=== PATIENT | female | born 1965 | race Caucasian/White ===

== ENCOUNTER 2020-12-07 18:09 | Inpatient (IN) ==
[2020-12-07] MEDS ORDERED: Isovue-370 500 ML BOTTLE IVP ONE (18:34)
[2020-12-07 21:15] LABS: Bilirubin,Urine Negative (Negative); Blood,Urine Negative (Negative); Clarity,Urine Clear (Clear); Color,Urine Light-Yellow (Yellow); Glucose,Urine (UA) Normal (Normal); Ketones,Urine Negative (Negative); Leukocyte Esterase,Urine Negative (Negative); Nitrite,Urine Negative (Negative); PH,Urine 6.5 pH Units (5.0-8.0); Protein,Urine Negative (Neg-Trace); Specific Gravity,Urine > 1.030 (1.010-1.025); Urobilinogen,Urine Normal (Normal)
[2020-12-07] MEDS ORDERED: MetroNIDAZOLE 500 MG/100 ML 500 MG/100 ML BAG IVPB ONE (21:43)
[2020-12-07] MEDS ORDERED: cefTRIAXone 1,000 MG in 0.9 % Sodium Chloride Mini Bag 100 ML IVPB ONE (22:16)
[2020-12-07] MEDS ORDERED: Naloxone 0.4 MG/ML INJ IVP PRN (22:48)
[2020-12-07] MEDS ORDERED: Acetaminophen 325 MG TABLET PO PRN (22:48)
[2020-12-07] MEDS ORDERED: Ondansetron 4 MG/2 ML VIAL IVP PRN (22:48)
[2020-12-08] MEDS: Ringers Solution, Lactated 1,000 ML IVC SCH ×2 (00:07→09:32)
[2020-12-08 05:36] LABS: Basophils % 0.4 %; Eosinophils % 0.4 %; Hematocrit 32.4 % (35.3-44.9); Hemoglobin 10.6 g/dL (11.5-15.4); Immature Granulocytes % 0.9 % (0-4); Lymphocytes # 1.2 K/mcL (0.6-4.6); Lymphocytes % 11.1 %; Mean Corpuscular HGB Conc 32.7 g/dL (31.6-35.5); Mean Corpuscular Hemoglobin 29.2 pg (28.0-33.3); Mean Corpuscular Volume 89.3 fL (83.0-100.0); Mean Platelet Volume 8.5 fL (9.4-12.4); Monocytes # 0.9 K/mcL (0.0-1.3); Monocytes % 8.1 %; Neutrophils # 8.8 K/mcL (1.6-8.9); Platelet Count 274 K/mcL (140-400); Red Blood Count 3.63 M/mcL (3.82-4.97); Segmented Neutrophils % 79.1 %; White Blood Count 11.1 K/mcL (4.3-11.1)
[2020-12-08 05:43] LABS: INR 1.3; Prothrombin Time 14.6 Seconds (9.4-12.1)
[2020-12-08] MEDS: hydrALAZINE 25 MG TABLET PO SCH ×3 (05:48→20:19)
[2020-12-08 05:53] LABS: Alanine Aminotransferase 16 Units/L (7-52); Albumin/Globulin Ratio 1.2 (1.1-2.2); Alkaline Phosphatase 49 Units/L (34-104); Aspartate Amino Transferase 15 Units/L (13-39); BUN/Creatinine Ratio 26 (6-26); Bilirubin,Total 0.3 mg/dL (0.3-1.0); Blood Urea Nitrogen 10 mg/dL (6-20); Calcium 8.8 mg/dL (8.6-10.3); Carbon Dioxide 31 mEq/L (23-29); Chloride 102 mEq/L (98-107); Chol/HDL Ratio 2.9 (0-4.9); Cholesterol 88 mg/dL (< 200); Globulin 2.5 g/dL (2.4-3.5); Glucose 92 mg/dL (70-105); HDL Cholesterol 30 mg/dL (40-59); LDL Cholesterol,Calculated 48 mg/dL (< 100); Magnesium 1.7 mg/dL (1.6-2.6); Osmolality,Calculated 281 (280-300); Phosphorous 2.8 mg/dL (2.7-4.5); Potassium 3.5 mEq/L (3.5-5.1); Sodium 136 mEq/L (136-145); Total Protein 5.5 g/dL (6.4-8.9); Triglycerides 49 mg/dL (< 150); eGFR For African Americans > 60 (> 60); eGFR For Non-African Americans > 60 (> 60)
[2020-12-08] MEDS ORDERED: *HR* Heparin 5,000 UNIT/ML VIAL SQ SCH (06:00)
[2020-12-08] MEDS ORDERED: *HR* Heparin 5,000 UNIT/ML VIAL IVP PRN ×2 (06:21)
[2020-12-08] MEDS ORDERED: *HR* Heparin 5,000 UNIT/ML VIAL IVP ONE (06:21)
[2020-12-08] MEDS ORDERED: Perflutren Lipid Microsphere 1.3 ML in 0.9 % Sodium Chloride 8.7 ML IVP PRN (06:23)
[2020-12-08] MEDS ORDERED: Heparin 25,000UNIT/250ML 1/2NS 25,000 UNIT/250 ML IV.SOLN IVC SCH (06:30)
[2020-12-08] MEDS: polyethylene glycoL 3350 17 GM POWD.PACK PO SCH (09:33)
[2020-12-08] MEDS: Cefepime HCl 2,000 MG in Water for inj. (sterile) 20 ML IVP SCH ×2 (09:34→16:30)
[2020-12-08] MEDS: Sennosides/Docusate Sodium TABLET PO SCH ×2 (09:34→20:19)
[2020-12-08 09:51] LABS: Hematocrit 35.6 % (35.3-44.9); Hemoglobin 11.7 g/dL (11.5-15.4); Mean Corpuscular HGB Conc 32.9 g/dL (31.6-35.5); Mean Corpuscular Hemoglobin 29.1 pg (28.0-33.3); Mean Corpuscular Volume 88.6 fL (83.0-100.0); Mean Platelet Volume 8.9 fL (9.4-12.4); Platelet Count 340 K/mcL (140-400); Red Blood Count 4.02 M/mcL (3.82-4.97); White Blood Count 12.5 K/mcL (4.3-11.1)
[2020-12-08 10:01] LABS: INR 1.2; Prothrombin Time 13.6 Seconds (9.4-12.1)
[2020-12-08 10:04] LABS: Heparin anti-factor XA UFH < 0.04 IU/mL (0.30-0.70)
[2020-12-08] MEDS ORDERED: Isovue-370 500 ML BOTTLE IVP ONE (10:50)
[2020-12-08] MEDS ORDERED: Saliva Stimulant 44.3ml BOTTLE PO PRN (10:52)
[2020-12-08] MEDS ORDERED: Saline Nasal Spray 44 ML BOTTLE NS PRN (10:52)
[2020-12-08] MEDS: Propranolol LA (24 HR) 60 MG CAP.SA.24H PO SCH (13:53)
[2020-12-08] MEDS: Aspirin Enteric Coated 81 MG Tablet PO SCH (13:53)
[2020-12-08] MEDS: *HR* LORazepam 1 MG TABLET PO SCH ×2 (16:30→20:19)
[2020-12-08] MEDS: haloperidoL 5 MG TABLET PO SCH ×2 (16:30→20:19)
[2020-12-08] MEDS: MetroNIDAZOLE 500 MG/100 ML 500 MG/100 ML BAG IVPB SCH (16:32)
[2020-12-08] MEDS: NIFEdipine XL (24 HR) 30 MG TAB.ER.24 PO SCH (16:45)
[2020-12-08 18:38] LABS: ABG Base Excess 5 mEq/L (-2 to 3); ABG HCO3 29 mEq/L (21-27); ABG Oxygen Saturation 88 % (95-98); ABG PCO2 43 mmHg (35-45); ABG PH 7.44 pH Units (7.32-7.45); ABG PO2 53 mmHg (85-104); ABG TCO2 31 mEq/L (20-26)
[2020-12-08] MEDS: Artificial Tears SOLN 15 ML BOTTLE BOTH EYES SCH (20:19)
[2020-12-08] MEDS: Melatonin 3 MG TABLET PO PRN (20:19)
[2020-12-08] MEDS: Chlorhexidine Rinse 15 ML MOUTHWASH MM SCH (20:20)
[2020-12-08] MEDS ORDERED: NIFEdipine XL (24 HR) 30 MG TAB.ER.24 PO SCH (21:00)
[2020-12-08] MEDS: Budesonide/Formoterol 160/4.5 1 PUFF INH IH SCH (21:56)
[2020-12-08] MEDS ORDERED: cefTRIAXone 2,000 MG in Water for inj. (sterile) 20 ML IVP SCH (23:00)
[2020-12-09] MEDS: Cefepime HCl 2,000 MG in Water for inj. (sterile) 20 ML IVP SCH ×3 (00:22→16:56)
[2020-12-09] MEDS: MetroNIDAZOLE 500 MG/100 ML 500 MG/100 ML BAG IVPB SCH ×3 (00:33→16:55)
[2020-12-09] MEDS: hydrALAZINE 25 MG TABLET PO SCH ×3 (06:05→22:55)
[2020-12-09 06:21] LABS: Mean Corpuscular HGB Conc 33.3 g/dL (31.6-35.5); Mean Corpuscular Hemoglobin 29.3 pg (28.0-33.3); Mean Platelet Volume 8.6 fL (9.4-12.4); Platelet Count 324 K/mcL (140-400); Red Blood Count 4.09 M/mcL (3.82-4.97); Red Cell Distribution Width 13.1 % (11.5-14.5); White Blood Count 10.4 K/mcL (4.3-11.1)
[2020-12-09 06:45] LABS: BUN/Creatinine Ratio 17 (6-26); Blood Urea Nitrogen 7 mg/dL (6-20); Calcium 9.2 mg/dL (8.6-10.3); Carbon Dioxide 29 mEq/L (23-29); Chloride 96 mEq/L (98-107); Glucose 114 mg/dL (70-105); Magnesium 1.9 mg/dL (1.6-2.6); Osmolality,Calculated 273 (280-300); Phosphorous 2.8 mg/dL (2.7-4.5); Potassium 3.7 mEq/L (3.5-5.1); Sodium 132 mEq/L (136-145); eGFR For African Americans > 60 (> 60); eGFR For Non-African Americans > 60 (> 60)
[2020-12-09] MEDS: NIFEdipine XL (24 HR) 30 MG TAB.ER.24 PO SCH (10:27)
[2020-12-09] MEDS: lisinopriL 20 MG TABLET PO SCH (10:27)
[2020-12-09] MEDS: Sennosides/Docusate Sodium TABLET PO SCH ×2 (10:28→22:55)
[2020-12-09] MEDS: haloperidoL 5 MG TABLET PO SCH ×3 (10:28→22:55)
[2020-12-09] MEDS: *HR* LORazepam 1 MG TABLET PO SCH ×3 (10:28→22:55)
[2020-12-09] MEDS: Aspirin Enteric Coated 81 MG Tablet PO SCH (10:28)
[2020-12-09] MEDS: Nicotine 14 MG PATCH.TD24 TD SCH ×2 (10:29→12:03)
[2020-12-09] MEDS: polyethylene glycoL 3350 17 GM POWD.PACK PO SCH (10:29)
[2020-12-09] MEDS: Propranolol LA (24 HR) 60 MG CAP.SA.24H PO SCH (10:29)
[2020-12-09] MEDS: Chlorhexidine Rinse 15 ML MOUTHWASH MM SCH ×2 (10:30→22:56)
[2020-12-09] MEDS: Artificial Tears SOLN 15 ML BOTTLE BOTH EYES SCH ×2 (10:43→22:56)
[2020-12-09] MEDS: Budesonide/Formoterol 160/4.5 1 PUFF INH IH SCH ×2 (10:46→22:00)
[2020-12-09] MEDS ORDERED: Furosemide 20 MG/2 ML VIAL IVP SCH (18:30)
[2020-12-09] MEDS ORDERED: Furosemide 20 MG/2 ML VIAL IVP ONE (20:42)
[2020-12-09] MEDS ORDERED: Prochlorperazine 10 MG/2 ML VIAL IVP PRN (20:51)
[2020-12-09] MEDS ORDERED: Scopolamine Patch 1.5 MG PATCH.TD72 TD ONE (22:29)
[2020-12-09] MEDS: Melatonin 3 MG TABLET PO PRN (22:55)
[2020-12-09] MEDS: Lactobacillus 1 EACH CAP.SPRINK PO SCH (22:55)
[2020-12-10] MEDS: MetroNIDAZOLE 500 MG/100 ML 500 MG/100 ML BAG IVPB SCH ×2 (00:06→08:21)
[2020-12-10] MEDS: Cefepime HCl 2,000 MG in Water for inj. (sterile) 20 ML IVP SCH ×4 (00:06→23:56)
[2020-12-10] MEDS: hydrALAZINE 25 MG TABLET PO SCH ×4 (05:31→23:51)
[2020-12-10 06:00] LABS: Hematocrit 33.8 % (35.3-44.9); Hemoglobin 11.6 g/dL (11.5-15.4); Mean Corpuscular HGB Conc 34.3 g/dL (31.6-35.5); Mean Corpuscular Hemoglobin 28.9 pg (28.0-33.3); Mean Corpuscular Volume 84.3 fL (83.0-100.0); Mean Platelet Volume 8.7 fL (9.4-12.4); Platelet Count 352 K/mcL (140-400); Red Blood Count 4.01 M/mcL (3.82-4.97); Red Cell Distribution Width 12.8 % (11.5-14.5); White Blood Count 15.8 K/mcL (4.3-11.1)
[2020-12-10 07:47] LABS: BUN/Creatinine Ratio 24 (6-26); Blood Urea Nitrogen 9 mg/dL (6-20); Calcium 9.1 mg/dL (8.6-10.3); Carbon Dioxide 26 mEq/L (23-29); Chloride 91 mEq/L (98-107); Glucose 110 mg/dL (70-105); Magnesium 1.6 mg/dL (1.6-2.6); Osmolality,Calculated 261 (280-300); Phosphorous 2.7 mg/dL (2.7-4.5); Potassium 3.5 mEq/L (3.5-5.1); Sodium 126 mEq/L (136-145); Thyroid Stimulating Hormone 2.324 mcIU/mL (0.340-5.600); eGFR For African Americans > 60 (> 60); eGFR For Non-African Americans > 60 (> 60)
[2020-12-10] MEDS: Lactobacillus 1 EACH CAP.SPRINK PO SCH ×2 (08:10→21:18)
[2020-12-10] MEDS: Sennosides/Docusate Sodium TABLET PO SCH ×2 (08:11→21:18)
[2020-12-10] MEDS: Nicotine 14 MG PATCH.TD24 TD SCH (08:11)
[2020-12-10] MEDS: Chlorhexidine Rinse 15 ML MOUTHWASH MM SCH ×2 (08:11→21:19)
[2020-12-10] MEDS: haloperidoL 5 MG TABLET PO SCH ×3 (08:11→21:19)
[2020-12-10] MEDS: lisinopriL 20 MG TABLET PO SCH (08:11)
[2020-12-10] MEDS: NIFEdipine XL (24 HR) 60 MG TAB.ER.24 PO SCH (08:11)
[2020-12-10] MEDS: Aspirin Enteric Coated 81 MG Tablet PO SCH (08:11)
[2020-12-10] MEDS: *HR* LORazepam 1 MG TABLET PO SCH ×3 (08:11→21:18)
[2020-12-10] MEDS: polyethylene glycoL 3350 17 GM POWD.PACK PO SCH (08:22)
[2020-12-10] MEDS: Artificial Tears SOLN 15 ML BOTTLE BOTH EYES SCH ×2 (08:23→21:16)
[2020-12-10] MEDS: Propranolol LA (24 HR) 60 MG CAP.SA.24H PO SCH (08:24)
[2020-12-10] MEDS: Budesonide/Formoterol 160/4.5 1 PUFF INH IH SCH ×2 (10:40→23:01)
[2020-12-11 00:28] LABS: Hematocrit 32.4 % (35.3-44.9); Hemoglobin 10.7 g/dL (11.5-15.4); Mean Corpuscular Hemoglobin 28.2 pg (28.0-33.3); Mean Corpuscular Volume 85.5 fL (83.0-100.0); Mean Platelet Volume 8.4 fL (9.4-12.4); Platelet Count 341 K/mcL (140-400); Red Blood Count 3.79 M/mcL (3.82-4.97); White Blood Count 14.2 K/mcL (4.3-11.1)
[2020-12-11 00:43] LABS: BUN/Creatinine Ratio 17 (6-26); Blood Urea Nitrogen 9 mg/dL (6-20); Calcium 8.6 mg/dL (8.6-10.3); Carbon Dioxide 25 mEq/L (23-29); Chloride 91 mEq/L (98-107); Glucose 162 mg/dL (70-105); Magnesium 1.5 mg/dL (1.6-2.6); Osmolality,Calculated 258 (280-300); Phosphorous 2.4 mg/dL (2.7-4.5); Potassium 3.3 mEq/L (3.5-5.1); Sodium 123 mEq/L (136-145); eGFR For African Americans > 60 (> 60); eGFR For Non-African Americans > 60 (> 60)
[2020-12-11 00:44] LABS: Albumin 3.1 g/dL (3.5-5.7)
[2020-12-11] MEDS: *HR* HYDROcodone/Acet 5/325 mg TABLET PO PRN (01:34)
[2020-12-11] MEDS: hydrALAZINE 25 MG TABLET PO SCH ×3 (05:40→18:06)
[2020-12-11] MEDS ORDERED: Albumin 25% 25gram/100mL 25 GM/100 ML IV.SOLN IVPB ONE (06:50)
[2020-12-11] MEDS ORDERED: 0.9 % Sodium Chloride 1,000 ML IVC ONE (07:19)
[2020-12-11] MEDS: polyethylene glycoL 3350 17 GM POWD.PACK PO SCH (08:07)
[2020-12-11] MEDS: Sennosides/Docusate Sodium TABLET PO SCH ×2 (08:08→20:41)
[2020-12-11] MEDS: lisinopriL 20 MG TABLET PO SCH (08:08)
[2020-12-11] MEDS: Propranolol LA (24 HR) 60 MG CAP.SA.24H PO SCH (08:08)
[2020-12-11] MEDS: NIFEdipine XL (24 HR) 60 MG TAB.ER.24 PO SCH (08:08)
[2020-12-11] MEDS: Cefepime HCl 2,000 MG in Water for inj. (sterile) 20 ML IVP SCH ×2 (08:17→14:34)
[2020-12-11] MEDS: Chlorhexidine Rinse 15 ML MOUTHWASH MM SCH ×2 (08:17→20:41)
[2020-12-11] MEDS: Nicotine 14 MG PATCH.TD24 TD SCH (08:18)
[2020-12-11] MEDS: Lactobacillus 1 EACH CAP.SPRINK PO SCH ×2 (08:19→20:41)
[2020-12-11] MEDS: Aspirin Enteric Coated 81 MG Tablet PO SCH (08:19)
[2020-12-11] MEDS: Artificial Tears SOLN 15 ML BOTTLE BOTH EYES SCH ×2 (08:21→20:41)
[2020-12-11] MEDS: Budesonide/Formoterol 160/4.5 1 PUFF INH IH SCH ×2 (09:37→22:39)
[2020-12-11] MEDS: haloperidoL 5 MG TABLET PO SCH ×3 (10:31→20:41)
[2020-12-11] MEDS: *HR* LORazepam 1 MG TABLET PO SCH ×3 (10:31→20:41)
[2020-12-11] MEDS ORDERED: GADOBUTROL 30 MMOL/30 ML VIAL IVP ONE (12:18)
[2020-12-11] MEDS ORDERED: 0.9 % Sodium Chloride 1,000 ML IVC SCH (15:45)
[2020-12-11 16:13] LABS: BUN/Creatinine Ratio 16 (6-26); Blood Urea Nitrogen 7 mg/dL (6-20); Calcium 9.5 mg/dL (8.6-10.3); Carbon Dioxide 28 mEq/L (23-29); Chloride 96 mEq/L (98-107); Glucose 115 mg/dL (70-105); Osmolality,Calculated 267 (280-300); Potassium 3.3 mEq/L (3.5-5.1); Sodium 129 mEq/L (136-145); eGFR For African Americans > 60 (> 60); eGFR For Non-African Americans > 60 (> 60)
[2020-12-11] MEDS: *HR* OxyCODONE Immed Rel 5 MG TABLET PO PRN (21:22)
[2020-12-12] MEDS: hydrALAZINE 25 MG TABLET PO SCH ×3 (01:19→17:45)
[2020-12-12] MEDS: Cefepime HCl 2,000 MG in Water for inj. (sterile) 20 ML IVP SCH ×4 (01:42→23:41)
[2020-12-12 02:52] LABS: Phosphorous 2.1 mg/dL (2.7-4.5)
[2020-12-12] MEDS: *HR* OxyCODONE Immed Rel 5 MG TABLET PO PRN (03:51)
[2020-12-12] MEDS: polyethylene glycoL 3350 17 GM POWD.PACK PO SCH (08:55)
[2020-12-12] MEDS: Chlorhexidine Rinse 15 ML MOUTHWASH MM SCH ×2 (08:56→19:37)
[2020-12-12] MEDS: Sennosides/Docusate Sodium TABLET PO SCH ×2 (08:56→19:36)
[2020-12-12] MEDS ORDERED: NIFEdipine XL (24 HR) 30 MG TAB.ER.24 PO SCH (09:00)
[2020-12-12] MEDS: Lactobacillus 1 EACH CAP.SPRINK PO SCH ×2 (09:05→19:36)
[2020-12-12] MEDS: haloperidoL 5 MG TABLET PO SCH ×3 (09:05→19:36)
[2020-12-12] MEDS: *HR* LORazepam 1 MG TABLET PO SCH ×3 (09:05→19:35)
[2020-12-12] MEDS: Propranolol LA (24 HR) 60 MG CAP.SA.24H PO SCH (09:05)
[2020-12-12] MEDS: Nicotine 14 MG PATCH.TD24 TD SCH (09:05)
[2020-12-12] MEDS: lisinopriL 20 MG TABLET PO SCH (09:05)
[2020-12-12] MEDS: Aspirin Enteric Coated 81 MG Tablet PO SCH (09:06)
[2020-12-12] MEDS: Artificial Tears SOLN 15 ML BOTTLE BOTH EYES SCH ×2 (09:06→19:36)
[2020-12-12] MEDS: Budesonide/Formoterol 160/4.5 1 PUFF INH IH SCH ×2 (10:52→22:33)
[2020-12-12 11:10] LABS: Basophils # 0.1 K/mcL (0.0-0.2); Basophils % 0.6 %; Eosinophils # 0.1 K/mcL (0.0-0.6); Eosinophils % 1.1 %; Hematocrit 33.5 % (35.3-44.9); Hemoglobin 10.9 g/dL (11.5-15.4); Immature Granulocytes % 1.2 % (0-4); Lymphocytes % 8.4 %; Mean Corpuscular HGB Conc 32.5 g/dL (31.6-35.5); Mean Corpuscular Hemoglobin 28.4 pg (28.0-33.3); Mean Corpuscular Volume 87.2 fL (83.0-100.0); Mean Platelet Volume 8.4 fL (9.4-12.4); Monocytes # 1.1 K/mcL (0.0-1.3); Monocytes % 8.6 %; Platelet Count 298 K/mcL (140-400); Red Blood Count 3.84 M/mcL (3.82-4.97); Red Cell Distribution Width 13.2 % (11.5-14.5); Segmented Neutrophils % 80.1 %; White Blood Count 12.4 K/mcL (4.3-11.1)
[2020-12-12 11:24] LABS: BUN/Creatinine Ratio 11 (6-26); Blood Urea Nitrogen 5 mg/dL (6-20); Calcium 8.8 mg/dL (8.6-10.3); Carbon Dioxide 28 mEq/L (23-29); Chloride 101 mEq/L (98-107); Glucose 124 mg/dL (70-105); Osmolality,Calculated 277 (280-300); Potassium 2.9 mEq/L (3.5-5.1); Sodium 134 mEq/L (136-145); eGFR For African Americans > 60 (> 60); eGFR For Non-African Americans > 60 (> 60)
[2020-12-12] MEDS: Melatonin 3 MG TABLET PO PRN (19:35)
[2020-12-13] MEDS: hydrALAZINE 25 MG TABLET PO SCH (01:52)
[2020-12-13 06:16] LABS: Basophils # 0.1 K/mcL (0.0-0.2); Basophils % 0.9 %; Eosinophils # 0.4 K/mcL (0.0-0.6); Eosinophils % 3.4 %; Hematocrit 32.7 % (35.3-44.9); Hemoglobin 10.3 g/dL (11.5-15.4); Immature Granulocytes % 1.3 % (0-4); Lymphocytes # 1.1 K/mcL (0.6-4.6); Lymphocytes % 8.6 %; Mean Corpuscular HGB Conc 31.5 g/dL (31.6-35.5); Mean Corpuscular Hemoglobin 28.1 pg (28.0-33.3); Mean Corpuscular Volume 89.1 fL (83.0-100.0); Mean Platelet Volume 8.5 fL (9.4-12.4); Monocytes # 1.3 K/mcL (0.0-1.3); Monocytes % 9.8 %; Neutrophils # 9.7 K/mcL (1.6-8.9); Platelet Count 276 K/mcL (140-400); Red Blood Count 3.67 M/mcL (3.82-4.97); Red Cell Distribution Width 13.3 % (11.5-14.5); White Blood Count 12.8 K/mcL (4.3-11.1)
[2020-12-13 06:39] LABS: BUN/Creatinine Ratio 12 (6-26); Blood Urea Nitrogen 4 mg/dL (6-20); Calcium 8.5 mg/dL (8.6-10.3); Carbon Dioxide 26 mEq/L (23-29); Chloride 103 mEq/L (98-107); Glucose 98 mg/dL (70-105); Osmolality,Calculated 273 (280-300); Potassium 3.9 mEq/L (3.5-5.1); Sodium 133 mEq/L (136-145); eGFR For African Americans > 60 (> 60); eGFR For Non-African Americans > 60 (> 60)
[2020-12-13] MEDS: *HR* LORazepam 1 MG TABLET PO SCH ×4 (09:45→19:41)
[2020-12-13] MEDS: Aspirin Enteric Coated 81 MG Tablet PO SCH (09:45)
[2020-12-13] MEDS: polyethylene glycoL 3350 17 GM POWD.PACK PO SCH (09:46)
[2020-12-13] MEDS: haloperidoL 5 MG TABLET PO SCH ×4 (09:46→19:41)
[2020-12-13] MEDS: Propranolol LA (24 HR) 60 MG CAP.SA.24H PO SCH (09:46)
[2020-12-13] MEDS: lisinopriL 20 MG TABLET PO SCH (09:46)
[2020-12-13] MEDS: Lactobacillus 1 EACH CAP.SPRINK PO SCH ×2 (09:46→19:41)
[2020-12-13] MEDS: Sennosides/Docusate Sodium TABLET PO SCH ×2 (09:46→19:41)
[2020-12-13] MEDS: Chlorhexidine Rinse 15 ML MOUTHWASH MM SCH ×2 (09:46→19:41)
[2020-12-13] MEDS: NIFEdipine XL (24 HR) 30 MG TAB.ER.24 PO SCH (09:46)
[2020-12-13] MEDS: Nicotine 14 MG PATCH.TD24 TD SCH (09:46)
[2020-12-13] MEDS: Artificial Tears SOLN 15 ML BOTTLE BOTH EYES SCH ×2 (10:05→19:42)
[2020-12-13] MEDS: Cefepime HCl 2,000 MG in Water for inj. (sterile) 20 ML IVP SCH (10:20)
[2020-12-13] MEDS: Budesonide/Formoterol 160/4.5 1 PUFF INH IH SCH ×2 (11:12→22:39)
[2020-12-13] MEDS: Melatonin 3 MG TABLET PO PRN (19:41)
[2020-12-14 05:27] LABS: Basophils # 0.1 K/mcL (0.0-0.2); Basophils % 0.8 %; Eosinophils # 0.5 K/mcL (0.0-0.6); Eosinophils % 3.9 %; Hematocrit 30.8 % (35.3-44.9); Hemoglobin 10.2 g/dL (11.5-15.4); Immature Granulocytes % 0.9 % (0-4); Lymphocytes # 1.2 K/mcL (0.6-4.6); Lymphocytes % 9.9 %; Mean Corpuscular HGB Conc 33.1 g/dL (31.6-35.5); Mean Corpuscular Hemoglobin 29.1 pg (28.0-33.3); Mean Platelet Volume 9.1 fL (9.4-12.4); Monocytes % 8.1 %; Neutrophils # 9.3 K/mcL (1.6-8.9); Nucleated Red Blood Cells 0.2 /100 WBC (0); Platelet Count 280 K/mcL (140-400); Red Cell Distribution Width 13.4 % (11.5-14.5); Segmented Neutrophils % 76.4 %; White Blood Count 12.2 K/mcL (4.3-11.1)
[2020-12-14] MEDS: *HR* OxyCODONE Immed Rel 5 MG TABLET PO PRN (05:37)
[2020-12-14 05:43] LABS: BUN/Creatinine Ratio 9 (6-26); Blood Urea Nitrogen 3 mg/dL (6-20); Calcium 8.3 mg/dL (8.6-10.3); Carbon Dioxide 30 mEq/L (23-29); Chloride 101 mEq/L (98-107); Glucose 89 mg/dL (70-105); Osmolality,Calculated 276 (280-300); Potassium 3.7 mEq/L (3.5-5.1); Sodium 135 mEq/L (136-145); eGFR For African Americans > 60 (> 60); eGFR For Non-African Americans > 60 (> 60)
[2020-12-14] MEDS: Artificial Tears SOLN 15 ML BOTTLE BOTH EYES SCH ×2 (09:18→20:12)
[2020-12-14] MEDS: Aspirin Enteric Coated 81 MG Tablet PO SCH (09:19)
[2020-12-14] MEDS: *HR* LORazepam 1 MG TABLET PO SCH ×3 (09:19→20:13)
[2020-12-14] MEDS: Propranolol LA (24 HR) 60 MG CAP.SA.24H PO SCH (09:19)
[2020-12-14] MEDS: Sennosides/Docusate Sodium TABLET PO SCH ×2 (09:19→20:13)
[2020-12-14] MEDS: NIFEdipine XL (24 HR) 30 MG TAB.ER.24 PO SCH (09:19)
[2020-12-14] MEDS: haloperidoL 5 MG TABLET PO SCH ×3 (09:19→20:13)
[2020-12-14] MEDS: Lactobacillus 1 EACH CAP.SPRINK PO SCH ×2 (09:19→20:12)
[2020-12-14] MEDS: lisinopriL 20 MG TABLET PO SCH (09:19)
[2020-12-14] MEDS: Nicotine 14 MG PATCH.TD24 TD SCH (09:19)
[2020-12-14] MEDS: Chlorhexidine Rinse 15 ML MOUTHWASH MM SCH ×2 (09:20→20:12)
[2020-12-14] MEDS: polyethylene glycoL 3350 17 GM POWD.PACK PO SCH (09:20)
[2020-12-14] MEDS: Budesonide/Formoterol 160/4.5 1 PUFF INH IH SCH ×2 (11:17→22:38)
[2020-12-14 12:39] LABS: Adenovirus Not Detected (Not Detect); Bordetella Pertussis Not Detected (Not Detect); Chlamydophila pneumoniae Not Detected (Not Detect); Coronavirus 229E Not Detected (Not Detect); Coronavirus HKU1 Not Detected (Not Detect); Coronavirus NL63 Not Detected (Not Detect); Coronavirus OC43 Not Detected (Not Detect); Human Metapneumovirus Not Detected (Not Detect); Human Rhinovirus/Enterovirus Not Detected (Not Detect); Influenza A Subtype 2009 H1 Not Detected (Not Detect); Influenza B Not Detected (Not Detect); Mycoplasma pneumoniae Not Detected (Not Detect); Parainfluenza Virus 1 Not Detected (Not Detect); Parainfluenza Virus 2 Not Detected (Not Detect); Parainfluenza Virus 3 Not Detected (Not Detect); Parainfluenza Virus 4 Not Detected (Not Detect); Respiratory Syncytial Virus Not Detected (Not Detect); SARS-CoV-2 Not Detected (Not Detect)
[2020-12-14] MEDS: Melatonin 3 MG TABLET PO PRN (20:13)
[2020-12-15 05:20] LABS: Hematocrit 29.2 % (35.3-44.9); Hemoglobin 9.4 g/dL (11.5-15.4); Mean Corpuscular HGB Conc 32.2 g/dL (31.6-35.5); Mean Corpuscular Hemoglobin 28.1 pg (28.0-33.3); Mean Corpuscular Volume 87.4 fL (83.0-100.0); Mean Platelet Volume 8.5 fL (9.4-12.4); Platelet Count 258 K/mcL (140-400); Red Blood Count 3.34 M/mcL (3.82-4.97); Red Cell Distribution Width 13.4 % (11.5-14.5); White Blood Count 9.7 K/mcL (4.3-11.1)
[2020-12-15 05:30] LABS: BUN/Creatinine Ratio 12 (6-26); Blood Urea Nitrogen 3 mg/dL (6-20); Calcium 8.4 mg/dL (8.6-10.3); Carbon Dioxide 31 mEq/L (23-29); Chloride 100 mEq/L (98-107); Glucose 93 mg/dL (70-105); Osmolality,Calculated 276 (280-300); Potassium 3.4 mEq/L (3.5-5.1); Sodium 135 mEq/L (136-145); eGFR For African Americans > 60 (> 60); eGFR For Non-African Americans > 60 (> 60)
[2020-12-15] MEDS: Aspirin Enteric Coated 81 MG Tablet PO SCH (08:07)
[2020-12-15] MEDS: NIFEdipine XL (24 HR) 30 MG TAB.ER.24 PO SCH (08:07)
[2020-12-15] MEDS: lisinopriL 20 MG TABLET PO SCH (08:07)
[2020-12-15] MEDS: Lactobacillus 1 EACH CAP.SPRINK PO SCH ×2 (08:07→21:16)
[2020-12-15] MEDS: Chlorhexidine Rinse 15 ML MOUTHWASH MM SCH ×2 (08:07→21:16)
[2020-12-15] MEDS: Propranolol LA (24 HR) 60 MG CAP.SA.24H PO SCH (08:08)
[2020-12-15] MEDS: Sennosides/Docusate Sodium TABLET PO SCH ×2 (08:08→21:16)
[2020-12-15] MEDS: *HR* LORazepam 1 MG TABLET PO SCH ×3 (08:08→21:16)
[2020-12-15] MEDS: Artificial Tears SOLN 15 ML BOTTLE BOTH EYES SCH ×2 (08:09→21:15)
[2020-12-15] MEDS: haloperidoL 5 MG TABLET PO SCH ×3 (08:09→21:16)
[2020-12-15] MEDS: Nicotine 14 MG PATCH.TD24 TD SCH (08:09)
[2020-12-15] MEDS: polyethylene glycoL 3350 17 GM POWD.PACK PO SCH (08:10)
[2020-12-15] MEDS: Budesonide/Formoterol 160/4.5 1 PUFF INH IH SCH ×2 (09:48→20:05)
[2020-12-16] MEDS: Budesonide/Formoterol 160/4.5 1 PUFF INH IH SCH ×2 (08:01→20:35)
[2020-12-16] MEDS: polyethylene glycoL 3350 17 GM POWD.PACK PO SCH (10:02)
[2020-12-16] MEDS: Aspirin Enteric Coated 81 MG Tablet PO SCH (10:02)
[2020-12-16] MEDS: lisinopriL 20 MG TABLET PO SCH (10:02)
[2020-12-16] MEDS: haloperidoL 5 MG TABLET PO SCH ×3 (10:03→20:35)
[2020-12-16] MEDS: Propranolol LA (24 HR) 60 MG CAP.SA.24H PO SCH (10:03)
[2020-12-16] MEDS: Lactobacillus 1 EACH CAP.SPRINK PO SCH ×2 (10:03→20:35)
[2020-12-16] MEDS: NIFEdipine XL (24 HR) 30 MG TAB.ER.24 PO SCH (10:03)
[2020-12-16] MEDS: Sennosides/Docusate Sodium TABLET PO SCH ×2 (10:03→20:35)
[2020-12-16] MEDS: Nicotine 14 MG PATCH.TD24 TD SCH ×2 (10:03→10:12)
[2020-12-16] MEDS: *HR* LORazepam 1 MG TABLET PO SCH ×3 (10:03→20:35)
[2020-12-16] MEDS: Chlorhexidine Rinse 15 ML MOUTHWASH MM SCH ×2 (10:04→20:34)
[2020-12-16] MEDS: Artificial Tears SOLN 15 ML BOTTLE BOTH EYES SCH ×2 (11:36→20:44)
[2020-12-16] MEDS: *HR* HYDROcodone/Acet 5/325 mg TABLET PO PRN (20:39)
[2020-12-17] MEDS: Budesonide/Formoterol 160/4.5 1 PUFF INH IH SCH ×2 (07:31→19:51)
[2020-12-17] MEDS: NIFEdipine XL (24 HR) 30 MG TAB.ER.24 PO SCH (08:26)
[2020-12-17] MEDS: haloperidoL 5 MG TABLET PO SCH ×3 (08:26→19:57)
[2020-12-17] MEDS: lisinopriL 20 MG TABLET PO SCH (08:26)
[2020-12-17] MEDS: Sennosides/Docusate Sodium TABLET PO SCH ×2 (08:26→19:57)
[2020-12-17] MEDS: Aspirin Enteric Coated 81 MG Tablet PO SCH (08:26)
[2020-12-17] MEDS: Chlorhexidine Rinse 15 ML MOUTHWASH MM SCH ×2 (08:26→19:56)
[2020-12-17] MEDS: *HR* LORazepam 1 MG TABLET PO SCH ×3 (08:26→19:57)
[2020-12-17] MEDS: polyethylene glycoL 3350 17 GM POWD.PACK PO SCH (08:27)
[2020-12-17] MEDS: Nicotine 14 MG PATCH.TD24 TD SCH (08:27)
[2020-12-17] MEDS: Lactobacillus 1 EACH CAP.SPRINK PO SCH ×2 (08:27→19:57)
[2020-12-17] MEDS: Artificial Tears SOLN 15 ML BOTTLE BOTH EYES SCH ×2 (08:32→19:57)
[2020-12-17] MEDS: Propranolol LA (24 HR) 60 MG CAP.SA.24H PO SCH (08:32)
[2020-12-17] MEDS ORDERED: *HR* Enoxaparin 40 MG/0.4 ML SYRINGE SQ ONE (15:36)
[2020-12-17] MEDS: Melatonin 3 MG TABLET PO PRN (19:56)
[2020-12-17] MEDS: *HR* HYDROcodone/Acet 5/325 mg TABLET PO PRN (19:56)
[2020-12-18 02:36] LABS: Hematocrit 29.4 % (35.3-44.9); Hemoglobin 9.6 g/dL (11.5-15.4); Mean Corpuscular HGB Conc 32.7 g/dL (31.6-35.5); Mean Corpuscular Volume 88.8 fL (83.0-100.0); Mean Platelet Volume 8.3 fL (9.4-12.4); Platelet Count 268 K/mcL (140-400); Red Blood Count 3.31 M/mcL (3.82-4.97); Red Cell Distribution Width 13.5 % (11.5-14.5); White Blood Count 8.6 K/mcL (4.3-11.1)
[2020-12-18 02:51] LABS: INR 1.3; Prothrombin Time 14.4 Seconds (9.4-12.1)
[2020-12-18 02:54] LABS: Alanine Aminotransferase 9 Units/L (7-52); Albumin 2.9 g/dL (3.5-5.7); Albumin/Globulin Ratio 1.3 (1.1-2.2); Alkaline Phosphatase 54 Units/L (34-104); Aspartate Amino Transferase 10 Units/L (13-39); BUN/Creatinine Ratio 11 (6-26); Bilirubin,Direct 0.1 mg/dL (0.0-0.2); Bilirubin,Indirect 0.2 mg/dL (0.0-1.0); Bilirubin,Total 0.3 mg/dL (0.3-1.0); Blood Urea Nitrogen 4 mg/dL (6-20); Calcium 8.7 mg/dL (8.6-10.3); Carbon Dioxide 31 mEq/L (23-29); Chloride 98 mEq/L (98-107); Globulin 2.3 g/dL (2.4-3.5); Glucose 110 mg/dL (70-105); Magnesium 1.3 mg/dL (1.6-2.6); Osmolality,Calculated 278 (280-300); Potassium 3.8 mEq/L (3.5-5.1); Sodium 135 mEq/L (136-145); Total Protein 5.2 g/dL (6.4-8.9); eGFR For African Americans > 60 (> 60); eGFR For Non-African Americans > 60 (> 60)
[2020-12-18] MEDS: *HR* Enoxaparin 40 MG/0.4 ML SYRINGE SQ SCH (05:29)
[2020-12-18] MEDS: Budesonide/Formoterol 160/4.5 1 PUFF INH IH SCH ×2 (07:40→22:03)
[2020-12-18] MEDS: Chlorhexidine Rinse 15 ML MOUTHWASH MM SCH ×2 (09:51→21:29)
[2020-12-18] MEDS: haloperidoL 5 MG TABLET PO SCH ×3 (09:52→21:29)
[2020-12-18] MEDS: NIFEdipine XL (24 HR) 30 MG TAB.ER.24 PO SCH (09:52)
[2020-12-18] MEDS: Sennosides/Docusate Sodium TABLET PO SCH ×2 (09:52→21:28)
[2020-12-18] MEDS: Lactobacillus 1 EACH CAP.SPRINK PO SCH ×2 (09:52→21:29)
[2020-12-18] MEDS: Aspirin Enteric Coated 81 MG Tablet PO SCH (09:52)
[2020-12-18] MEDS: lisinopriL 20 MG TABLET PO SCH (09:52)
[2020-12-18] MEDS: polyethylene glycoL 3350 17 GM POWD.PACK PO SCH (09:52)
[2020-12-18] MEDS: *HR* LORazepam 1 MG TABLET PO SCH ×3 (09:52→21:28)
[2020-12-18] MEDS: Nicotine 14 MG PATCH.TD24 TD SCH (09:53)
[2020-12-18] MEDS: Propranolol LA (24 HR) 60 MG CAP.SA.24H PO SCH (09:58)
[2020-12-18] MEDS: Artificial Tears SOLN 15 ML BOTTLE BOTH EYES SCH ×2 (10:14→21:29)
[2020-12-18] MEDS: Melatonin 3 MG TABLET PO PRN (21:28)
[2020-12-19] MEDS: *HR* Enoxaparin 40 MG/0.4 ML SYRINGE SQ SCH (06:45)
[2020-12-19] MEDS: Budesonide/Formoterol 160/4.5 1 PUFF INH IH SCH ×2 (07:29→20:26)
[2020-12-19] MEDS: NIFEdipine XL (24 HR) 30 MG TAB.ER.24 PO SCH (09:56)
[2020-12-19] MEDS: Propranolol LA (24 HR) 60 MG CAP.SA.24H PO SCH (09:57)
[2020-12-19] MEDS: Chlorhexidine Rinse 15 ML MOUTHWASH MM SCH ×2 (09:57→21:48)
[2020-12-19] MEDS: *HR* LORazepam 1 MG TABLET PO SCH ×3 (09:57→21:47)
[2020-12-19] MEDS: Lactobacillus 1 EACH CAP.SPRINK PO SCH ×2 (09:57→21:48)
[2020-12-19] MEDS: lisinopriL 20 MG TABLET PO SCH (09:57)
[2020-12-19] MEDS: haloperidoL 5 MG TABLET PO SCH ×3 (09:57→21:47)
[2020-12-19] MEDS: Sennosides/Docusate Sodium TABLET PO SCH ×2 (09:57→21:47)
[2020-12-19] MEDS: polyethylene glycoL 3350 17 GM POWD.PACK PO SCH (09:57)
[2020-12-19] MEDS: Aspirin Enteric Coated 81 MG Tablet PO SCH (09:57)
[2020-12-19] MEDS: Artificial Tears SOLN 15 ML BOTTLE BOTH EYES SCH ×2 (09:58→21:47)
[2020-12-19] MEDS: Nicotine 14 MG PATCH.TD24 TD SCH (09:58)
[2020-12-20] MEDS: *HR* Enoxaparin 40 MG/0.4 ML SYRINGE SQ SCH (05:54)
[2020-12-20] MEDS: Budesonide/Formoterol 160/4.5 1 PUFF INH IH SCH ×2 (07:52→20:20)
[2020-12-20] MEDS: Aspirin Enteric Coated 81 MG Tablet PO SCH (10:43)
[2020-12-20] MEDS: Chlorhexidine Rinse 15 ML MOUTHWASH MM SCH ×2 (10:43→21:49)
[2020-12-20] MEDS: polyethylene glycoL 3350 17 GM POWD.PACK PO SCH (10:43)
[2020-12-20] MEDS: Lactobacillus 1 EACH CAP.SPRINK PO SCH ×2 (10:43→21:49)
[2020-12-20] MEDS: Sennosides/Docusate Sodium TABLET PO SCH ×2 (10:43→21:49)
[2020-12-20] MEDS: NIFEdipine XL (24 HR) 30 MG TAB.ER.24 PO SCH (10:44)
[2020-12-20] MEDS: *HR* LORazepam 1 MG TABLET PO SCH (10:44)
[2020-12-20] MEDS: lisinopriL 20 MG TABLET PO SCH (10:44)
[2020-12-20] MEDS: haloperidoL 5 MG TABLET PO SCH ×3 (10:44→21:49)
[2020-12-20] MEDS: Artificial Tears SOLN 15 ML BOTTLE BOTH EYES SCH ×2 (10:46→21:49)
[2020-12-20] MEDS: Nicotine 14 MG PATCH.TD24 TD SCH (10:46)
[2020-12-20] MEDS: Propranolol LA (24 HR) 60 MG CAP.SA.24H PO SCH (10:46)
[2020-12-20] MEDS ORDERED: Bisacodyl 10 MG RECTAL SUPPOSITORY RC PRN (14:59)
[2020-12-21 05:17] LABS: Hematocrit 31.1 % (35.3-44.9); Hemoglobin 9.8 g/dL (11.5-15.4); Mean Corpuscular HGB Conc 31.5 g/dL (31.6-35.5); Mean Corpuscular Hemoglobin 27.9 pg (28.0-33.3); Mean Corpuscular Volume 88.6 fL (83.0-100.0); Mean Platelet Volume 8.2 fL (9.4-12.4); Platelet Count 267 K/mcL (140-400); Red Blood Count 3.51 M/mcL (3.82-4.97); White Blood Count 9.6 K/mcL (4.3-11.1)
[2020-12-21 05:32] LABS: Alanine Aminotransferase 13 Units/L (7-52); Albumin 3.1 g/dL (3.5-5.7); Albumin/Globulin Ratio 1.3 (1.1-2.2); Alkaline Phosphatase 58 Units/L (34-104); Aspartate Amino Transferase 17 Units/L (13-39); BUN/Creatinine Ratio 14 (6-26); Bilirubin,Direct 0.1 mg/dL (0.0-0.2); Bilirubin,Indirect 0.3 mg/dL (0.0-1.0); Bilirubin,Total 0.4 mg/dL (0.3-1.0); Blood Urea Nitrogen 5 mg/dL (6-20); Calcium 8.8 mg/dL (8.6-10.3); Carbon Dioxide 31 mEq/L (23-29); Chloride 101 mEq/L (98-107); Globulin 2.4 g/dL (2.4-3.5); Glucose 88 mg/dL (70-105); Magnesium 1.6 mg/dL (1.6-2.6); Osmolality,Calculated 279 (280-300); Potassium 3.7 mEq/L (3.5-5.1); Sodium 136 mEq/L (136-145); Total Protein 5.5 g/dL (6.4-8.9); eGFR For African Americans > 60 (> 60); eGFR For Non-African Americans > 60 (> 60)
[2020-12-21] MEDS: *HR* Enoxaparin 40 MG/0.4 ML SYRINGE SQ SCH (06:18)
[2020-12-21] MEDS: Budesonide/Formoterol 160/4.5 1 PUFF INH IH SCH ×2 (08:01→19:47)
[2020-12-21] MEDS: NIFEdipine XL (24 HR) 30 MG TAB.ER.24 PO SCH (09:38)
[2020-12-21] MEDS: polyethylene glycoL 3350 17 GM POWD.PACK PO SCH (09:38)
[2020-12-21] MEDS: lisinopriL 20 MG TABLET PO SCH (09:39)
[2020-12-21] MEDS: Propranolol LA (24 HR) 60 MG CAP.SA.24H PO SCH (09:39)
[2020-12-21] MEDS: Nicotine 14 MG PATCH.TD24 TD SCH (09:40)
[2020-12-21] MEDS: Lactobacillus 1 EACH CAP.SPRINK PO SCH ×2 (09:40→20:35)
[2020-12-21] MEDS: haloperidoL 5 MG TABLET PO SCH ×3 (09:40→20:35)
[2020-12-21] MEDS: Chlorhexidine Rinse 15 ML MOUTHWASH MM SCH ×3 (09:40→20:35)
[2020-12-21] MEDS: Aspirin Enteric Coated 81 MG Tablet PO SCH (09:40)
[2020-12-21] MEDS: Sennosides/Docusate Sodium TABLET PO SCH ×2 (09:40→20:34)
[2020-12-21] MEDS: Artificial Tears SOLN 15 ML BOTTLE BOTH EYES SCH ×2 (09:41→20:39)
[2020-12-21] MEDS ORDERED: Haloperidol Decanoate 50 MG/ML VIAL IM ONE (17:00)
[2020-12-22] MEDS: *HR* LORazepam 1 MG TABLET PO SCH (03:27)
[2020-12-22] MEDS: *HR* Enoxaparin 40 MG/0.4 ML SYRINGE SQ SCH (06:49)
[2020-12-22] MEDS: Budesonide/Formoterol 160/4.5 1 PUFF INH IH SCH ×2 (07:38→20:01)
[2020-12-22] MEDS: Artificial Tears SOLN 15 ML BOTTLE BOTH EYES SCH ×2 (09:01→20:11)
[2020-12-22] MEDS: Propranolol LA (24 HR) 60 MG CAP.SA.24H PO SCH (09:01)
[2020-12-22] MEDS: Chlorhexidine Rinse 15 ML MOUTHWASH MM SCH ×2 (09:01→20:11)
[2020-12-22] MEDS: Aspirin Enteric Coated 81 MG Tablet PO SCH (09:02)
[2020-12-22] MEDS: polyethylene glycoL 3350 17 GM POWD.PACK PO SCH (09:02)
[2020-12-22] MEDS: NIFEdipine XL (24 HR) 30 MG TAB.ER.24 PO SCH (09:02)
[2020-12-22] MEDS: lisinopriL 20 MG TABLET PO SCH (09:02)
[2020-12-22] MEDS: haloperidoL 5 MG TABLET PO SCH ×3 (09:03→20:11)
[2020-12-22] MEDS: Lactobacillus 1 EACH CAP.SPRINK PO SCH ×2 (09:03→20:11)
[2020-12-22] MEDS: Nicotine 14 MG PATCH.TD24 TD SCH (09:03)
[2020-12-22] MEDS: Sennosides/Docusate Sodium TABLET PO SCH ×2 (09:04→20:15)
[2020-12-23] MEDS: *HR* Enoxaparin 40 MG/0.4 ML SYRINGE SQ SCH (05:50)
[2020-12-23] MEDS: haloperidoL 5 MG TABLET PO SCH ×3 (08:56→21:20)
[2020-12-23] MEDS: polyethylene glycoL 3350 17 GM POWD.PACK PO SCH (08:56)
[2020-12-23] MEDS: Propranolol LA (24 HR) 60 MG CAP.SA.24H PO SCH (08:56)
[2020-12-23] MEDS: Lactobacillus 1 EACH CAP.SPRINK PO SCH ×2 (08:56→21:20)
[2020-12-23] MEDS: Chlorhexidine Rinse 15 ML MOUTHWASH MM SCH ×2 (08:56→21:20)
[2020-12-23] MEDS: Aspirin Enteric Coated 81 MG Tablet PO SCH (08:57)
[2020-12-23] MEDS: Sennosides/Docusate Sodium TABLET PO SCH ×2 (08:57→21:21)
[2020-12-23] MEDS: NIFEdipine XL (24 HR) 30 MG TAB.ER.24 PO SCH (08:57)
[2020-12-23] MEDS: lisinopriL 20 MG TABLET PO SCH (08:57)
[2020-12-23] MEDS: Nicotine 14 MG PATCH.TD24 TD SCH (08:57)
[2020-12-23] MEDS: Artificial Tears SOLN 15 ML BOTTLE BOTH EYES SCH ×2 (09:35→21:30)
[2020-12-23] MEDS: Budesonide/Formoterol 160/4.5 1 PUFF INH IH SCH ×2 (10:23→20:16)
[2020-12-24 04:34] LABS: Hematocrit 35.7 % (35.3-44.9); Hemoglobin 11.9 g/dL (11.5-15.4); Mean Corpuscular HGB Conc 33.3 g/dL (31.6-35.5); Mean Corpuscular Hemoglobin 28.5 pg (28.0-33.3); Mean Corpuscular Volume 85.6 fL (83.0-100.0); Mean Platelet Volume 8.4 fL (9.4-12.4); Platelet Count 299 K/mcL (140-400); Red Blood Count 4.17 M/mcL (3.82-4.97); Red Cell Distribution Width 13.8 % (11.5-14.5); White Blood Count 7.2 K/mcL (4.3-11.1)
[2020-12-24 04:54] LABS: BUN/Creatinine Ratio 6 (6-26); Blood Urea Nitrogen 3 mg/dL (6-20); Calcium 9.5 mg/dL (8.6-10.3); Carbon Dioxide 30 mEq/L (23-29); Chloride 100 mEq/L (98-107); Glucose 93 mg/dL (70-105); Magnesium 1.6 mg/dL (1.6-2.6); Osmolality,Calculated 278 (280-300); Phosphorous 3.5 mg/dL (2.7-4.5); Potassium 3.2 mEq/L (3.5-5.1); Sodium 136 mEq/L (136-145); eGFR For African Americans > 60 (> 60); eGFR For Non-African Americans > 60 (> 60)
[2020-12-24] MEDS: *HR* Enoxaparin 40 MG/0.4 ML SYRINGE SQ SCH (05:55)
[2020-12-24] MEDS: Budesonide/Formoterol 160/4.5 1 PUFF INH IH SCH (07:51)
[2020-12-24] MEDS: NIFEdipine XL (24 HR) 30 MG TAB.ER.24 PO SCH (09:33)
[2020-12-24] MEDS: Aspirin Enteric Coated 81 MG Tablet PO SCH (09:33)
[2020-12-24] MEDS: Sennosides/Docusate Sodium TABLET PO SCH (09:34)
[2020-12-24] MEDS: lisinopriL 20 MG TABLET PO SCH (09:34)
[2020-12-24] MEDS: Propranolol LA (24 HR) 60 MG CAP.SA.24H PO SCH (09:34)
[2020-12-24] MEDS: haloperidoL 5 MG TABLET PO SCH ×2 (09:34→14:25)
[2020-12-24] MEDS: Nicotine 14 MG PATCH.TD24 TD SCH (09:34)
[2020-12-24] MEDS: Lactobacillus 1 EACH CAP.SPRINK PO SCH (09:34)
[2020-12-24] MEDS: Artificial Tears SOLN 15 ML BOTTLE BOTH EYES SCH (09:35)
[2020-12-24] MEDS: Chlorhexidine Rinse 15 ML MOUTHWASH MM SCH (09:35)
[2020-12-24] MEDS: polyethylene glycoL 3350 17 GM POWD.PACK PO SCH (09:36)
[2020-12-24 11:51] VITALS: BP 150/84; PULSE 87; TEMP 98.5; O2SAT 96
== END 2020-12-24 16:33 | DRG 871 ==
LOC: 3ANU 18:09 → EMEROOARM 18:09 → SUATTDRO 22:24 → 3ANU 23:44 → SUATTDRO 12-09 16:22 → 2ANU 12-23 04:52
PROVIDERS: ADMIT Internal Medicine; ATTEND Internal Medicine

== ENCOUNTER 2021-09-13 18:32 | Inpatient (IN) ==
[2021-09-13] MEDS ORDERED: *HR* LORazepam 2 MG/ML VIAL IVP ONE ×2 (19:05→22:24)
[2021-09-13 19:14] LABS: Basophils # 0.1 K/mcL (0.0-0.2); Basophils % 0.8 %; Eosinophils # 0.6 K/mcL (0.0-0.6); Hematocrit 40.7 % (35.3-44.9); Hemoglobin 13.1 g/dL (11.5-15.4); Immature Granulocytes % 0.4 % (0-4); Lymphocytes # 1.9 K/mcL (0.6-4.6); Lymphocytes % 18.2 %; Mean Corpuscular HGB Conc 32.2 g/dL (31.6-35.5); Mean Corpuscular Hemoglobin 26.6 pg (28.0-33.3); Mean Corpuscular Volume 82.6 fL (83.0-100.0); Mean Platelet Volume 9.4 fL (9.4-12.4); Monocytes # 0.8 K/mcL (0.0-1.3); Monocytes % 8.2 %; Neutrophils # 6.7 K/mcL (1.6-8.9); Platelet Count 271 K/mcL (140-400); Red Blood Count 4.93 M/mcL (3.82-4.97); Red Cell Distribution Width 14.4 % (11.5-14.5); Segmented Neutrophils % 66.4 %; White Blood Count 10.1 K/mcL (4.3-11.1)
[2021-09-13 19:24] LABS: Alanine Aminotransferase 11 Units/L (7-52); Albumin 3.9 g/dL (3.5-5.7); Albumin/Globulin Ratio 1.4 (1.1-2.2); Alkaline Phosphatase 65 Units/L (34-104); Aspartate Amino Transferase 13 Units/L (13-39); BUN/Creatinine Ratio 19 (6-26); Bilirubin,Total 0.6 mg/dL (0.3-1.0); Blood Urea Nitrogen 16 mg/dL (6-20); Calcium 9.7 mg/dL (8.6-10.3); Carbon Dioxide 29 mEq/L (23-29); Chloride 95 mEq/L (98-107); Creatine Kinase 104 Units/L (30-223); Globulin 2.7 g/dL (2.4-3.5); Glucose 138 mg/dL (70-105); Magnesium 1.7 mg/dL (1.6-2.6); Osmolality,Calculated 275 (280-300); Phosphorous 4.3 mg/dL (2.7-4.5); Potassium 3.8 mEq/L (3.5-5.1); Sodium 131 mEq/L (136-145); Total Protein 6.6 g/dL (6.4-8.9); Troponin I < 0.03 ng/mL (< 0.04); eGFR For African Americans > 60 (> 60); eGFR For Non-African Americans > 60 (> 60)
[2021-09-13] MEDS ORDERED: Isovue-370 500 ML BOTTLE IVP ONE (19:24)
[2021-09-13 19:26] LABS: Bacteria,Urine Moderate per hpf (None-Few); Bilirubin,Urine Negative (Negative); Blood,Urine Moderate (Negative); Clarity,Urine Ex.Turbid (Clear); Color,Urine Yellow (Yellow); Glucose,Urine (UA) Normal (Normal); Ketones,Urine Negative (Negative); Leukocyte Esterase,Urine Large (Negative); Mucus,Urine Few per lpf (None-Few); Nitrite,Urine Negative (Negative); PH,Urine 6.5 pH Units (5.0-8.0); Protein,Urine 100 mg/dL (Neg-Trace); RBC,Urine 15-30 per hpf (0-3); Transitional Epi Cells,Urine Few per hpf (None-Few); Urobilinogen,Urine Normal (Normal); WBC,Urine TNTC per hpf (0-3)
[2021-09-13] MEDS ORDERED: cefTRIAXone 1,000 MG in 0.9 % Sodium Chloride 10 ML IVP ONE (19:30)
[2021-09-13] MEDS ORDERED: 0.9 % Sodium Chloride 1,000 ML IVC ONE (20:02)
[2021-09-13] MEDS ORDERED: Acetaminophen 325 MG TABLET PO PRN (20:28)
[2021-09-13] MEDS ORDERED: Melatonin 3 MG TABLET PO PRN (20:28)
[2021-09-13] MEDS ORDERED: Naloxone 0.4 MG/ML INJ IVP PRN (20:28)
[2021-09-13] MEDS ORDERED: Ondansetron 4 MG/2 ML VIAL IVP PRN (20:28)
[2021-09-13] MEDS ORDERED: Ringers Solution, Lactated 1,000 ML IVC SCH (20:30)
[2021-09-13] MEDS ORDERED: Dextrose 4 GM Chewable Tablets PO PRN ×2 (21:37)
[2021-09-13] MEDS ORDERED: D5% in Water 1,000 ML IVC PRN (21:37)
[2021-09-13] MEDS ORDERED: *HR* Dextrose 50 % in Water (Syg) 50 ML SYRINGE IVP PRN (21:37)
[2021-09-13] MEDS ORDERED: SODIUM CHLORIDE/NAHCO3/KCL/PEG 4,000 ML SOLN.RECON PO ONE (22:16)
[2021-09-13] MEDS ORDERED: 0.9 % Sodium Chloride 1,000 ML IVC SCH (22:30)
[2021-09-14 01:13] LABS: VBG HCO3 26 mEq/L (21-27); VBG PCO2 42 mmHg (41-51); VBG PH 7.41 pH Units (7.32-7.42); VBG PO2 195 mmHg (25-50)
[2021-09-14 01:15] LABS: Basophils # 0.1 K/mcL (0.0-0.2); Basophils % 0.8 %; Eosinophils # 0.4 K/mcL (0.0-0.6); Eosinophils % 4.7 %; Hemoglobin 12.1 g/dL (11.5-15.4); Immature Granulocytes % 0.4 % (0-4); Lymphocytes # 1.5 K/mcL (0.6-4.6); Lymphocytes % 17.7 %; Mean Corpuscular HGB Conc 32.7 g/dL (31.6-35.5); Mean Corpuscular Hemoglobin 26.7 pg (28.0-33.3); Mean Corpuscular Volume 81.5 fL (83.0-100.0); Mean Platelet Volume 9.3 fL (9.4-12.4); Monocytes # 0.6 K/mcL (0.0-1.3); Monocytes % 6.7 %; Neutrophils # 5.7 K/mcL (1.6-8.9); Platelet Count 237 K/mcL (140-400); Red Blood Count 4.54 M/mcL (3.82-4.97); Red Cell Distribution Width 14.2 % (11.5-14.5); Segmented Neutrophils % 69.7 %; White Blood Count 8.2 K/mcL (4.3-11.1)
[2021-09-14 01:29] LABS: Acetaminophen < 10 mcg/mL (10-20); Alanine Aminotransferase 11 Units/L (7-52); Albumin 3.4 g/dL (3.5-5.7); Albumin/Globulin Ratio 1.3 (1.1-2.2); Alkaline Phosphatase 59 Units/L (34-104); Aspartate Amino Transferase 13 Units/L (13-39); BUN/Creatinine Ratio 24 (6-26); Bilirubin,Total 0.3 mg/dL (0.3-1.0); Blood Urea Nitrogen 12 mg/dL (6-20); Calcium 8.8 mg/dL (8.6-10.3); Carbon Dioxide 27 mEq/L (23-29); Chloride 105 mEq/L (98-107); Ethanol < 10 mg/dL (Less than 10); Globulin 2.7 g/dL (2.4-3.5); Glucose 112 mg/dL (70-105); Magnesium 1.7 mg/dL (1.6-2.6); Osmolality,Calculated 285 (280-300); Phosphorous 3.1 mg/dL (2.7-4.5); Potassium 3.6 mEq/L (3.5-5.1); Salicylate < 2.5 mg/dL (15.0-30.0); Sodium 137 mEq/L (136-145); Total Protein 6.1 g/dL (6.4-8.9); eGFR For African Americans > 60 (> 60); eGFR For Non-African Americans > 60 (> 60)
[2021-09-14 01:35] LABS: INR 1.1; Prothrombin Time 12.6 Seconds (9.4-12.1)
[2021-09-14 01:37] LABS: Activated Partial Thrombo Time 30.1 Seconds (26.0-36.0)
[2021-09-14 01:45] LABS: Thyroid Stimulating Hormone 1.584 mcIU/mL (0.340-5.600)
[2021-09-14 01:54] LABS: Folate 6.9 ng/mL (3.0-16.0)
[2021-09-14] MEDS ORDERED: Iron Sucrose Complex 400 MG in 0.9 % Sodium Chloride 250 ML IVPB ONE (03:03)
[2021-09-14] MEDS ORDERED: Saliva Stimulant 44.3ml BOTTLE PO PRN (03:05)
[2021-09-14] MEDS ORDERED: Ipratropium/Albuterol Neb 3 ML IH SCH (04:00)
[2021-09-14] MEDS: Budesonide/Formoterol 160/4.5 1 PUFF INH IH SCH ×2 (07:55→20:16)
[2021-09-14] MEDS ORDERED: polyethylene glycoL 3350 17 GM POWD.PACK PO SCH (09:00)
[2021-09-14] MEDS: Multivit/Ca/Min/Fe/FA 1 TAB TABLET PO SCH (09:07)
[2021-09-14] MEDS: predniSONE 20 MG TABLET PO SCH (09:07)
[2021-09-14] MEDS: *HR* LORazepam 1 MG TABLET PO SCH ×2 (09:07→21:34)
[2021-09-14] MEDS: Sennosides/Docusate Sodium TABLET PO SCH ×2 (09:07→21:34)
[2021-09-14] MEDS: Lactobacillus 1 EACH CAP.SPRINK PO SCH ×2 (09:07→21:34)
[2021-09-14] MEDS: Chlorhexidine Rinse 15 ML MOUTHWASH MM SCH ×2 (09:08→21:34)
[2021-09-14] MEDS: cefTRIAXone 1,000 MG in 0.9 % Sodium Chloride Mini Bag 100 ML IVPB SCH (09:08)
[2021-09-14] MEDS: haloperidoL 5 MG TABLET PO SCH ×3 (09:08→21:34)
[2021-09-14 10:26] LABS: Amphetamine Screen,Urine Negative ng/mL (Cutoff=1000); Barbiturate Screen,Urine Negative ng/mL (Cutoff=200); Benzodiazepines Screen,Urine Negative ng/mL (Cutoff=200); Cannabinoid Screen,Urine Positive ng/mL (Cutoff = 50); Cocaine Screen,Urine Negative ng/mL (Cutoff= 300); Opiate Screen,Urine Negative ng/mL (Cutoff=300); Phencyclidine Screen,Urine Negative ng/mL (Cutoff=25)
[2021-09-14] MEDS ORDERED: Milk and Molasses Enema 200 ML RC ONE (11:53)
[2021-09-15] MEDS: Budesonide/Formoterol 160/4.5 1 PUFF INH IH SCH ×2 (07:25→20:05)
[2021-09-15] MEDS ORDERED: NON-FORMULARY MEDICATION 1 EACH EACH (Atorvastatin Calcium [Lipitor] 80 MG Tablet) PO SCH (08:00)
[2021-09-15] MEDS ORDERED: Sennosides 8.6 MG TABLET PO SCH (09:00)
[2021-09-15] MEDS: Lactobacillus 1 EACH CAP.SPRINK PO SCH ×2 (09:23→21:23)
[2021-09-15] MEDS: haloperidoL 5 MG TABLET PO SCH ×3 (09:23→21:23)
[2021-09-15] MEDS: *HR* LORazepam 1 MG TABLET PO SCH ×2 (09:23→21:23)
[2021-09-15] MEDS: Aspirin Enteric Coated 81 MG Tablet PO SCH (09:23)
[2021-09-15] MEDS: Propranolol LA (24 HR) 60 MG CAP.SA.24H PO SCH (09:23)
[2021-09-15] MEDS: Sennosides/Docusate Sodium TABLET PO SCH ×2 (09:23→21:23)
[2021-09-15] MEDS: predniSONE 20 MG TABLET PO SCH (09:23)
[2021-09-15] MEDS: lisinopriL 20 MG TABLET PO SCH (09:23)
[2021-09-15] MEDS: NIFEdipine XL (24 HR) 60 MG TAB.ER.24 PO SCH (09:24)
[2021-09-15] MEDS: Multivit/Ca/Min/Fe/FA 1 TAB TABLET PO SCH (09:24)
[2021-09-15] MEDS: Chlorhexidine Rinse 15 ML MOUTHWASH MM SCH ×2 (09:24→21:23)
[2021-09-15] MEDS: cefTRIAXone 1,000 MG in 0.9 % Sodium Chloride Mini Bag 100 ML IVPB SCH (09:36)
[2021-09-16] MEDS: Budesonide/Formoterol 160/4.5 1 PUFF INH IH SCH (08:07)
[2021-09-16] MEDS: Aspirin Enteric Coated 81 MG Tablet PO SCH (08:34)
[2021-09-16] MEDS: Sennosides/Docusate Sodium TABLET PO SCH (08:34)
[2021-09-16] MEDS: haloperidoL 5 MG TABLET PO SCH ×2 (08:34→15:36)
[2021-09-16] MEDS: lisinopriL 20 MG TABLET PO SCH (08:34)
[2021-09-16] MEDS: Lactobacillus 1 EACH CAP.SPRINK PO SCH (08:34)
[2021-09-16] MEDS: *HR* LORazepam 1 MG TABLET PO SCH (08:34)
[2021-09-16] MEDS: predniSONE 20 MG TABLET PO SCH (08:35)
[2021-09-16] MEDS: NIFEdipine XL (24 HR) 60 MG TAB.ER.24 PO SCH (08:35)
[2021-09-16] MEDS: Propranolol LA (24 HR) 60 MG CAP.SA.24H PO SCH (08:35)
[2021-09-16] MEDS: Multivit/Ca/Min/Fe/FA 1 TAB TABLET PO SCH (08:35)
[2021-09-16] MEDS: Chlorhexidine Rinse 15 ML MOUTHWASH MM SCH (08:35)
[2021-09-16] MEDS: cefTRIAXone 1,000 MG in 0.9 % Sodium Chloride Mini Bag 100 ML IVPB SCH (08:36)
[2021-09-16 19:14] VITALS: BP 135/67; PULSE 64; TEMP 97.7; O2SAT 97
== END 2021-09-16 19:58 | disposition home or self-care (01) | DRG 698 ==
LOC: SUATTDRO → 3ANU 18:32 → EMEROOARM 18:32 → SUATTDRO 20:43 → 3ANU 21:24 → SUATTDRO 09-15 13:43
PROVIDERS: ADMIT Internal Medicine; ATTEND Family Medicine

== ENCOUNTER 2021-12-07 13:29 | Inpatient (IN) ==
[2021-12-07] MEDS ORDERED: Iopamidol - 370 500 ML MLS IVP ONE (13:33)
[2021-12-07 13:55] LABS: Hematocrit 40.3 % (35.3-44.9); Hemoglobin 13.3 g/dL (11.5-15.4); Mean Corpuscular Hemoglobin 27.2 pg (28.0-33.3); Mean Corpuscular Volume 82.4 fL (83.0-100.0); Mean Platelet Volume 8.9 fL (9.4-12.4); Platelet Count 248 K/mcL (140-400); Red Blood Count 4.89 M/mcL (3.82-4.97); Red Cell Distribution Width 14.1 % (11.5-14.5)
[2021-12-07 14:14] LABS: Alanine Aminotransferase 10 Units/L (7-52); Albumin/Globulin Ratio 1.3 (1.1-2.2); Alkaline Phosphatase 58 Units/L (34-104); Aspartate Amino Transferase 17 Units/L (13-39); BUN/Creatinine Ratio 13 (6-26); Bilirubin,Direct 0.1 mg/dL (0.0-0.2); Bilirubin,Indirect 0.5 mg/dL (0.0-1.0); Bilirubin,Total 0.6 mg/dL (0.3-1.0); Blood Urea Nitrogen 9 mg/dL (6-20); Calcium 9.4 mg/dL (8.6-10.3); Carbon Dioxide 27 mEq/L (23-29); Chloride 99 mEq/L (98-107); Ethanol < 10 mg/dL (Less than 10); Glucose 111 mg/dL (70-105); Osmolality,Calculated 271 (280-300); Potassium 3.9 mEq/L (3.5-5.1); Sodium 131 mEq/L (136-145); eGFR For African Americans > 60 (> 60); eGFR For Non-African Americans > 60 (> 60)
[2021-12-07 14:15] LABS: Bilirubin,Urine Negative (Negative); Blood,Urine Negative (Negative); Clarity,Urine Clear (Clear); Color,Urine Colorless (Yellow); Glucose,Urine (UA) Normal (Normal); Ketones,Urine Negative (Negative); Leukocyte Esterase,Urine Negative (Negative); Nitrite,Urine Negative (Negative); PH,Urine 6.5 pH Units (5.0-8.0); Protein,Urine Negative (Neg-Trace); Urobilinogen,Urine Normal (Normal)
[2021-12-07 14:21] LABS: Troponin I < 0.03 ng/mL (< 0.04)
[2021-12-07 14:27] LABS: INR 1.2; Prothrombin Time 12.9 Seconds (9.4-12.1)
[2021-12-07 14:30] LABS: Activated Partial Thrombo Time 33.1 Seconds (26.0-36.0)
[2021-12-07 14:30] LABS: Amphetamine Screen,Urine Negative ng/mL (Cutoff=1000); Barbiturate Screen,Urine Negative ng/mL (Cutoff=200); Benzodiazepines Screen,Urine Negative ng/mL (Cutoff=200); Cannabinoid Screen,Urine Positive ng/mL (Cutoff = 50); Cocaine Screen,Urine Negative ng/mL (Cutoff= 300); Opiate Screen,Urine Negative ng/mL (Cutoff=300); Phencyclidine Screen,Urine Negative ng/mL (Cutoff=25)
[2021-12-07] MEDS ORDERED: *HR* LORazepam 1 MG TABLET PO ONE (14:41)
[2021-12-07] MEDS ORDERED: haloperidoL 5 MG TABLET PO ONE (14:41)
[2021-12-07] MEDS ORDERED: Acetaminophen 325 MG TABLET PO PRN (16:11)
[2021-12-07] MEDS ORDERED: Naloxone 0.4 MG/ML INJ IVP PRN (16:11)
[2021-12-07] MEDS ORDERED: Ondansetron ODT 4 MG TAB.RAPDIS SL PRN (16:11)
[2021-12-07] MEDS ORDERED: MOM Conc 10 ML UD.LIQ PO PRN (16:11)
[2021-12-07] MEDS: Sennosides 8.6 MG TABLET PO SCH (21:25)
[2021-12-07] MEDS: *HR* LORazepam 1 MG TABLET PO SCH (21:25)
[2021-12-07] MEDS: haloperidoL 5 MG TABLET PO SCH (21:25)
[2021-12-08] MEDS: Sennosides 8.6 MG TABLET PO SCH ×2 (08:47→20:06)
[2021-12-08] MEDS: Propranolol LA (24 HR) 60 MG CAP.SA.24H PO SCH (08:47)
[2021-12-08] MEDS: haloperidoL 5 MG TABLET PO SCH ×3 (08:47→21:26)
[2021-12-08] MEDS: *HR* LORazepam 1 MG TABLET PO SCH ×3 (08:47→20:06)
[2021-12-08] MEDS: NIFEdipine XL (24 HR) 60 MG TAB.ER.24 PO SCH (08:47)
[2021-12-08] MEDS ORDERED: Aspirin Enteric Coated 81 MG Tablet PO SCH (09:00)
[2021-12-08] MEDS ORDERED: Aspirin 81 MG TAB.CHEW PO SCH (09:00)
[2021-12-08 18:17] LABS: Hematocrit 37.6 % (35.3-44.9); Hemoglobin 12.4 g/dL (11.5-15.4); Mean Corpuscular Hemoglobin 27.4 pg (28.0-33.3); Mean Platelet Volume 9.3 fL (9.4-12.4); Platelet Count 236 K/mcL (140-400); Red Blood Count 4.53 M/mcL (3.82-4.97); Red Cell Distribution Width 13.9 % (11.5-14.5); White Blood Count 5.5 K/mcL (4.3-11.1)
[2021-12-08 18:53] LABS: BUN/Creatinine Ratio 10 (6-26); Blood Urea Nitrogen 5 mg/dL (6-20); Calcium 9.1 mg/dL (8.6-10.3); Carbon Dioxide 25 mEq/L (23-29); Chloride 106 mEq/L (98-107); Glucose 80 mg/dL (70-105); Osmolality,Calculated 282 (280-300); Potassium 3.6 mEq/L (3.5-5.1); Sodium 138 mEq/L (136-145); eGFR For African Americans > 60 (> 60); eGFR For Non-African Americans > 60 (> 60)
[2021-12-08] MEDS: QUEtiapine Fumarate 25 MG TABLET PO PRN (20:06)
[2021-12-08] MEDS: Melatonin 3 MG TABLET PO PRN (20:06)
[2021-12-09] MEDS: *HR* LORazepam 1 MG TABLET PO SCH ×3 (09:48→20:49)
[2021-12-09] MEDS: Sennosides 8.6 MG TABLET PO SCH ×2 (09:48→20:49)
[2021-12-09] MEDS: haloperidoL 5 MG TABLET PO SCH ×3 (09:48→20:49)
[2021-12-09] MEDS: NIFEdipine XL (24 HR) 60 MG TAB.ER.24 PO SCH (09:48)
[2021-12-09] MEDS: Thiamine (B-1) 100 MG TABLET PO SCH (09:50)
[2021-12-09] MEDS: Propranolol LA (24 HR) 60 MG CAP.SA.24H PO SCH (10:30)
[2021-12-09] MEDS: Melatonin 3 MG TABLET PO PRN (20:49)
[2021-12-09] MEDS: QUEtiapine Fumarate 25 MG TABLET PO PRN (20:49)
[2021-12-10] MEDS: Sennosides 8.6 MG TABLET PO SCH ×2 (09:04→20:31)
[2021-12-10] MEDS: NIFEdipine XL (24 HR) 60 MG TAB.ER.24 PO SCH (09:04)
[2021-12-10] MEDS: haloperidoL 5 MG TABLET PO SCH ×3 (09:04→20:31)
[2021-12-10] MEDS: *HR* LORazepam 1 MG TABLET PO SCH ×3 (09:04→20:31)
[2021-12-10] MEDS: Thiamine (B-1) 100 MG TABLET PO SCH (09:04)
[2021-12-10] MEDS: Propranolol LA (24 HR) 60 MG CAP.SA.24H PO SCH (09:04)
[2021-12-10 19:43] LABS: Hematocrit 40.7 % (35.3-44.9); Hemoglobin 13.8 g/dL (11.5-15.4); Mean Corpuscular HGB Conc 33.9 g/dL (31.6-35.5); Mean Corpuscular Hemoglobin 27.1 pg (28.0-33.3); Platelet Count 321 K/mcL (140-400); Red Blood Count 5.09 M/mcL (3.82-4.97); Red Cell Distribution Width 13.3 % (11.5-14.5)
[2021-12-10 19:47] LABS: White Blood Count 9.2 K/mcL (4.3-11.1)
[2021-12-10 20:01] LABS: BUN/Creatinine Ratio 8 (6-26); Blood Urea Nitrogen 5 mg/dL (6-20); Calcium 9.4 mg/dL (8.6-10.3); Carbon Dioxide 27 mEq/L (23-29); Chloride 97 mEq/L (98-107); Glucose 93 mg/dL (70-105); Osmolality,Calculated 271 (280-300); Potassium 3.4 mEq/L (3.5-5.1); Sodium 132 mEq/L (136-145); eGFR For African Americans > 60 (> 60); eGFR For Non-African Americans > 60 (> 60)
[2021-12-11] MEDS: NIFEdipine XL (24 HR) 60 MG TAB.ER.24 PO SCH (08:16)
[2021-12-11] MEDS: Propranolol LA (24 HR) 60 MG CAP.SA.24H PO SCH (08:17)
[2021-12-11] MEDS: Sennosides 8.6 MG TABLET PO SCH ×2 (08:17→20:07)
[2021-12-11] MEDS: *HR* LORazepam 1 MG TABLET PO SCH ×3 (08:17→20:06)
[2021-12-11] MEDS: Thiamine (B-1) 100 MG TABLET PO SCH (08:17)
[2021-12-11] MEDS: haloperidoL 5 MG TABLET PO SCH ×3 (08:18→20:09)
[2021-12-11] MEDS: QUEtiapine Fumarate 25 MG TABLET PO PRN (11:20)
[2021-12-11 16:16] LABS: Mean Corpuscular HGB Conc 32.6 g/dL (31.6-35.5); Mean Corpuscular Hemoglobin 26.8 pg (28.0-33.3); Mean Corpuscular Volume 82.2 fL (83.0-100.0); Mean Platelet Volume 9.1 fL (9.4-12.4); Platelet Count 272 K/mcL (140-400); Red Blood Count 5.23 M/mcL (3.82-4.97); Red Cell Distribution Width 13.7 % (11.5-14.5); White Blood Count 7.5 K/mcL (4.3-11.1)
[2021-12-11 16:31] LABS: BUN/Creatinine Ratio 8 (6-26); Blood Urea Nitrogen 4 mg/dL (6-20); Calcium 9.3 mg/dL (8.6-10.3); Carbon Dioxide 26 mEq/L (23-29); Chloride 102 mEq/L (98-107); Glucose 109 mg/dL (70-105); Osmolality,Calculated 277 (280-300); Potassium 3.5 mEq/L (3.5-5.1); Sodium 135 mEq/L (136-145); eGFR For African Americans > 60 (> 60); eGFR For Non-African Americans > 60 (> 60)
[2021-12-11] MEDS: Melatonin 3 MG TABLET PO PRN (20:06)
[2021-12-12 07:16] LABS: Hematocrit 39.8 % (35.3-44.9); Mean Corpuscular HGB Conc 32.7 g/dL (31.6-35.5); Mean Corpuscular Hemoglobin 26.9 pg (28.0-33.3); Mean Corpuscular Volume 82.4 fL (83.0-100.0); Mean Platelet Volume 9.4 fL (9.4-12.4); Platelet Count 263 K/mcL (140-400); Red Blood Count 4.83 M/mcL (3.82-4.97); Red Cell Distribution Width 13.7 % (11.5-14.5); White Blood Count 6.9 K/mcL (4.3-11.1)
[2021-12-12 07:35] LABS: BUN/Creatinine Ratio 6 (6-26); Blood Urea Nitrogen 3 mg/dL (6-20); Calcium 9.1 mg/dL (8.6-10.3); Carbon Dioxide 27 mEq/L (23-29); Chloride 102 mEq/L (98-107); Glucose 108 mg/dL (70-105); Osmolality,Calculated 277 (280-300); Potassium 3.4 mEq/L (3.5-5.1); Sodium 135 mEq/L (136-145); eGFR For African Americans > 60 (> 60); eGFR For Non-African Americans > 60 (> 60)
[2021-12-12] MEDS: Thiamine (B-1) 100 MG TABLET PO SCH (08:44)
[2021-12-12] MEDS: *HR* LORazepam 1 MG TABLET PO SCH ×2 (08:45→14:39)
[2021-12-12] MEDS: Sennosides 8.6 MG TABLET PO SCH ×2 (08:45→20:02)
[2021-12-12] MEDS: NIFEdipine XL (24 HR) 60 MG TAB.ER.24 PO SCH (08:45)
[2021-12-12] MEDS: Propranolol LA (24 HR) 60 MG CAP.SA.24H PO SCH (08:45)
[2021-12-12] MEDS: haloperidoL 5 MG TABLET PO SCH ×3 (08:47→20:05)
[2021-12-12] MEDS: *HR* LORazepam 0.5 MG TABLET PO SCH (20:02)
[2021-12-13 06:52] VITALS: O2SAT 97
[2021-12-13] MEDS: Propranolol LA (24 HR) 60 MG CAP.SA.24H PO SCH (08:10)
[2021-12-13] MEDS: Thiamine (B-1) 100 MG TABLET PO SCH (08:10)
[2021-12-13] MEDS: NIFEdipine XL (24 HR) 60 MG TAB.ER.24 PO SCH (08:10)
[2021-12-13] MEDS: *HR* LORazepam 0.5 MG TABLET PO SCH ×2 (08:11→14:31)
[2021-12-13] MEDS: Sennosides 8.6 MG TABLET PO SCH (08:11)
[2021-12-13] MEDS: haloperidoL 5 MG TABLET PO SCH ×2 (08:55→14:30)
[2021-12-13 10:04] VITALS: BP 150/92; PULSE 66; TEMP 97.6
== END 2021-12-13 16:15 | disposition home or self-care (01) | DRG 57 ==
LOC: 3BNU 13:29 → EMEROOARM 13:29 → SUATTDRO 16:11 → 3BNU 17:05
PROVIDERS: ADMIT General Practice; ATTEND Nurse Practitioner